=== PATIENT | male | born 1985 | race Hispanic/Latino ===

== ENCOUNTER 2021-07-11 12:58 | Emergency (ER) | payer SELFPAY ==
[~2021-07-11] VITALS: Ht 165.1 cm; Wt 83.9 kg
[2021-07-11] MEDS ORDERED: DICYCLOMINE 20MG (10MG/ML) AMP IM SCH (13:14)
[2021-07-11 13:29] LABS: APPEARANCE,URINE Clear (CLEAR); BILIRUBIN,URINE Negative (NEGATIVE); COLOR,URINE Yellow (YELLOW); GLUCOSE, URINE (UA) Negative (NEGATIVE); KETONES,URINE Negative (NEGATIVE); LEUKOCYTE ESTERASE ,URINE Trace (NEGATIVE); NITRATE,URINE Negative (NEGATIVE); OCCULT BLOOD,URINE Negative (NEGATIVE); PH,URINE 5.5 (5.0-8.0); PROTEIN,URINE Negative (NEGATIVE); UROBILINOGEN,URINE 0.2 mg/dL (0.2-1.0)
[2021-07-11 13:43] LABS: BACTERIA,URINE Rare /HPF (None Seen); RBC,URINE 0-1 /HPF (0-1); SQUAMOUS EPITHELIAL CELL,UR Rare /HPF (0-2); WBC,URINE 0-1 /HPF (0-1)
[2021-07-11 14:04] LABS: BASOPHILS % (AUTO) 1.4 % (0.0-5.0); EOSINOPHILS % (AUTO) 1.7 % (0.0-8.0); HEMATOCRIT 47.4 % (42-54); LYMPHOCYTES % (AUTO) 26.6 % (21.0-51.0); MEAN CORPUSCULAR HGB CONC 32.1 g/dL (32.0-36.0); MEAN CORPUSCULAR VOLUME 90.5 fL (79-99); MONOCYTES % (AUTO) 10.8 % (3.0-13.0); PLATELET COUNT (AUTO) 310 K/uL (130-400); RED BLOOD CELL COUNT(AUTO) 5.24 MIL/uL (4.50-6.20); WHITE BLOOD COUNT (AUTO) 5.8 K/uL (4.8-10.8)
[2021-07-11 14:20] LABS: CREATININE 0.7 mg/dL (0.5-1.5); POTASSIUM 4.1 mmol/L (3.5-5.1)
[2021-07-11 14:26] LABS: ALBUMIN 3.9 g/dL (3.5-5.0); BILIRUBIN,TOTAL 0.2 mg/dL (0.2-1.0)
[2021-07-11] MEDS ORDERED: ALBU8.5H8 IH (15:14)
[2021-07-11] MEDS ORDERED: NAPR-1180 PO (15:14)
[2021-07-11] MEDS ORDERED: CYCL10TA16 PO (15:14)
[2021-07-11 15:40] VITALS: BP 117/84
== END 2021-07-11 15:44 | disposition home or self-care (01) ==
LOC: EDH 12:58
DX: J98.11 Atelectasis (principal)
CPT/HCPCS: 36415; 74176; 80053; 81001; 83690; 85025; 96372; 99284; J0500

== ENCOUNTER 2023-07-02 11:13 | Emergency (ER) | payer OTHER ==
[~2023-07-02] VITALS: Ht 165.1 cm; Wt 76.2 kg
[~2023-07-02 11:13] MED LIST: ALBU8.5H8 IH; CYCL10TA16 PO; NAPR-1180 PO
[2023-07-02 11:14] VITALS: BP 144/94; PULSE 87; RESP 18
== END 2023-07-02 12:12 | disposition left against medical advice (07) ==
LOC: EDH 11:13
DX: R07.9 Chest pain, unspecified (principal); Z53.21 Procedure and treatment not carried out due to patient leaving prior to being seen by health care provider
CPT/HCPCS: 93005; 99281

== ENCOUNTER 2023-08-11 07:54 | Emergency (ER) | payer OTHER ==
[~2023-08-11] VITALS: Ht 165.1 cm; Wt 78.9 kg
[2023-08-11] MEDS ORDERED: METH4TAB3 PO (09:36)
[2023-08-11 09:54] VITALS: BP 136/84; PULSE 70; RESP 18; O2SAT 98
[2023-08-11] MEDS: SOLU-MEDROL 125MG VIAL IM ONE (09:54)
== END 2023-08-11 09:53 | disposition home or self-care (01) ==
LOC: EDH 07:54
DX: M79.18 Myalgia, other site (principal); M54.2 Cervicalgia; Z79.899 Other long term (current) drug therapy
CPT/HCPCS: 99283; J2930